=== PATIENT | female | born 1950 | race Two or more races ===

== ENCOUNTER 2017-10-11 09:16 | Emergency (ER) | payer SELFPAY ==
[~2017-10-11] VITALS: Ht 165.1 cm; Wt 108.9 kg
[2017-10-11] MEDS ORDERED: ONDANSETRON HCL 4 MG/2 ML VIAL IV ONE (10:45)
[2017-10-11] MEDS ORDERED: HYDROmorphone HCL 2 MG/ML VL IV ONE (10:45)
[2017-10-11 11:10] LABS: Basophils # (auto) 0 uL; Basophils % (auto) 0.3 % (0.0-2.0); Eosinophils # (auto) 0.3 uL; Eosinophils % (auto) 2.8 % (0.0-7.0); Hemoglobin 13.7 g/dL (12.2-16.2); Lymphocytes # (auto) 2.2 uL; Lymphocytes % (auto) 18.3 % (10.0-50.0); Mean Corpuscular Hemoglobin 30.3 pg (28.0-32.0); Mean Corpuscular Hgb Conc. 34.4 g/dL (32.0-36.0); Mean Corpuscular Volume 88.2 fL (80.0-100.0); Mean Platelet Volume 7.7 fL (6.9-10.8); Monocytes # (auto) 0.9 uL; Monocytes % (auto) 7.6 % (0.0-12.0); Neutrophils # (auto) 8.5 uL; Nucleated Red Blood Cells % 0.1 %; Platelet Count (auto) 288 10^3/uL (140-450); Red Cell Distribution Width 14.6 % (11.8-14.3)
[2017-10-11 11:13] LABS: BUN/Creatinine Ratio 22.7; Calcium 9.1 mg/dL (8.5-10.1); Potassium 4.1 mmol/L (3.5-5.1)
[2017-10-11 11:25] LABS: INR 0.88 (0.9-1.15); Partial Thromboplastin Time 27.3 sec (22.64-33.71); Prothrombin Time 9.6 sec (9.37-12.3)
[2017-10-11 12:27] VITALS: BP 145/84
== END 2017-10-11 12:26 | disposition home or self-care (01) ==
LOC: ER 09:16
DX: S42.201A Unspecified fracture of upper end of right humerus, initial encounter for closed fracture (principal); S20.211A Contusion of right front wall of thorax, initial encounter; I10 Essential (primary) hypertension; Z91.040 Latex allergy status; W01.0XXA Fall on same level from slipping, tripping and stumbling without subsequent striking against object, initial encounter; Y93.89 Activity, other specified; Y92.89 Other specified places as the place of occurrence of the external cause; Y99.8 Other external cause status
CPT/HCPCS: 29105; 36415; 71101; 73030; 80048; 85025; 85610; 85730; 96374; 96375; 99285; J1170; J2405

== ENCOUNTER 2018-03-19 15:17 | Emergency (ER) | payer MEDICAID ==
[~2018-03-19] VITALS: Ht 165.1 cm; Wt 117.9 kg
[2018-03-19 16:49] LABS: Basophils # (auto) 0.2 uL; Basophils % (auto) 1.5 % (0.0-2.0); Eosinophils # (auto) 0.4 uL; Eosinophils % (auto) 3.3 % (0.0-7.0); Hematocrit 41.4 % (36.0-46.0); Hemoglobin 13.6 g/dL (12.2-16.2); Lymphocytes # (auto) 2.4 uL; Lymphocytes % (auto) 19.4 % (10.0-50.0); Mean Corpuscular Hemoglobin 28.8 pg (28.0-32.0); Mean Corpuscular Hgb Conc. 32.8 g/dL (32.0-36.0); Mean Corpuscular Volume 87.8 fL (80.0-100.0); Monocytes # (auto) 1.1 uL; Monocytes % (auto) 9.3 % (0.0-12.0); Neutrophils # (auto) 8.1 uL; Neutrophils % (auto) 66.5 % (37.0-80.0); Nucleated Red Blood Cells % 0.1 %; Platelet Count (auto) 326 10^3/uL (140-450); Red Blood Cells 4.71 10^6/uL (4.0-5.20); Red Cell Distribution Width 13.9 % (11.8-14.3); White Blood Cell 12.2 10^3/uL (4.4-10.8)
[2018-03-19 17:07] LABS: Alanine Aminotransferase 28 U/L (13-56); Albumin 3.5 g/dL (3.4-5.0); Anion Gap 7 (5-15); Aspartate Aminotransferase 20 U/L (15-37); BUN/Creatinine Ratio 21.1; Blood Urea Nitrogen 16 mg/dL (7-18); Calcium 8.9 mg/dL (8.5-10.1); Carbon Dioxide 28 mmol/L (21-32); Chloride 106 mmol/L (98-107); GFR African American 98 mL/min; GFR Non-African American 81 mL/min; Glucose 86 mg/dL (74-106); Magnesium 2.3 mg/dL (1.6-2.6); Potassium 3.9 mmol/L (3.5-5.1); Sodium 141 mmol/L (136-145)
[2018-03-19 17:12] LABS: Alkaline Phosphatase 102 U/L (45-117); Bilirubin, Total 0.3 mg/dL (0.2-1.0); Total Protein 7.6 g/dL (6.4-8.2)
[2018-03-19 18:17] LABS: Urine Bacteria FEW /hpf (None Seen); Urine Blood TRACE /uL (Negative); Urine Specific Gravity 1.016 (1.001-1.035); Urine WBC <1 /hpf (0 - 5)
[2018-03-19 21:15] VITALS: BP 147/67
== END 2018-03-20 02:29 | disposition home or self-care (01) ==
LOC: ER 15:20
DX: S16.1XXA Strain of muscle, fascia and tendon at neck level, initial encounter (principal); J98.11 Atelectasis; E11.9 Type 2 diabetes mellitus without complications; E07.89 Other specified disorders of thyroid; Z90.710 Acquired absence of both cervix and uterus; Z90.89 Acquired absence of other organs; Z91.040 Latex allergy status
CPT/HCPCS: 36415; 71046; 72125; 80053; 81001; 83735; 84484; 85025; 93005

== ENCOUNTER 2019-09-10 20:29 | Emergency (ER) | payer MEDICAID ==
[~2019-09-10] VITALS: Ht 165.1 cm; Wt 122.5 kg
[2019-09-11] MEDS ORDERED: KETOROLAC TROMETH 60MG/2ML VIAL IM ONE (00:30)
[2019-09-11 00:55] VITALS: BP 135/41
== END 2019-09-11 01:23 | disposition home or self-care (01) ==
LOC: ER 20:29
DX: M85.30 Osteitis condensans, unspecified site (principal); M53.3 Sacrococcygeal disorders, not elsewhere classified; I10 Essential (primary) hypertension; Z90.710 Acquired absence of both cervix and uterus; Z86.39 Personal history of other endocrine, nutritional and metabolic disease; Z91.040 Latex allergy status
CPT/HCPCS: 72220; 81002; 96372; 99283; J1885

== ENCOUNTER → 2019-10-13 | Outpatient (CLI) | payer MEDICAID | END | disposition home or self-care (01) | LOC: Rad HDHVI 08:46 | PROVIDERS: ATTEND Internal Medicine | DX: R07.89 Other chest pain (principal); G47.33 Obstructive sleep apnea (adult) (pediatric); I11.9 Hypertensive heart disease without heart failure | CPT/HCPCS: 93306 ==

== ENCOUNTER 2023-04-09 10:27 | Inpatient (IN) | payer MEDICAID, OTHER ==
[~2023-04-09] VITALS: Ht 165.1 cm; Wt 130.0 kg
[~2023-04-09 10:27] MED LIST: ATOR40TA52 PO; LEVO137T3 PO; LORA-622 PO; LOSA-69 PO; METF-370 PO
[2023-04-09 10:50] LABS: Basophils # (auto) 0.1 10 ^3/uL (0-0.2); Basophils % (auto) 0.8 % (0.0-2.0); Eosinophils # (auto) 0.2 10 ^3/uL (0-0.8); Eosinophils % (auto) 1.9 % (0.0-7.0); Hematocrit 42.4 % (36.0-46.0); Hemoglobin 14.3 g/dL (12.2-16.2); Lymphocytes # (auto) 2.1 10 ^3/uL (0.4-5.4); Lymphocytes % (auto) 16.7 % (10.0-50.0); Mean Corpuscular Hemoglobin 29.4 pg (28.0-32.0); Mean Corpuscular Hgb Conc. 33.6 g/dL (32.0-36.0); Mean Corpuscular Volume 87.5 fL (80.0-100.0); Monocytes % (auto) 8.1 % (0.0-12.0); Neutrophils % (auto) 72.5 % (37.0-80.0); Nucleated Red Blood Cells % 0.2 %; Red Blood Cells 4.85 10^6/uL (4.0-5.20); Red Cell Distribution Width 14.5 % (11.8-14.3); White Blood Cell 12.5 10^3/uL (4.4-10.8)
[2023-04-09 11:18] LABS: Calcium 9.5 mg/dL (8.5-10.1); Potassium 4.1 mmol/L (3.5-5.1)
[2023-04-09 11:22] LABS: BUN/Creatinine Ratio 21.1 (10.0-20.0); Bilirubin, Total 0.5 mg/dL (0.2-1.0); Total Protein 7.2 g/dL (6.4-8.2)
[2023-04-09 11:27] LABS: INR 0.9 (0.9-1.15); Partial Thromboplastin Time 27.8 sec (24.6-33.4)
[2023-04-09] MEDS ORDERED: ONDANSETRON HCL 4 MG/2 ML VIAL IV PRN (18:15)
[2023-04-09] MEDS ORDERED: LOSARTAN POTASSIUM 50 MG TAB PO ONE (18:15)
[2023-04-09] MEDS ORDERED: MORPHINE SULFATE INJ 2 MG/ml SYRG IV PRN ×2 (18:15)
[2023-04-09] MEDS ORDERED: KETOROLAC TROMETH 30 MG/ML 1ML VIAL IV ONE (18:15)
[2023-04-09] MEDS ORDERED: DEXTROSE (50%) 50ML SYRG IV PRN (18:15)
[2023-04-09] MEDS ORDERED: PANTOPRAZOLE 40 MG/10 ML VIAL INJ IV ONE (18:15)
[2023-04-09] MEDS ORDERED: NITROGLYCERIN 0.4 MG SL TAB SL PRN (18:15)
[2023-04-09] MEDS ORDERED: LORazepam 0.5 MG TAB PO PRN (18:30)
[2023-04-09] MEDS: ATORVASTATIN 20 MG TAB PO SCH (23:43)
[2023-04-09 23:55] LABS: Urine Bacteria FEW /hpf (None Seen); Urine Blood 1+ /uL (Negative); Urine Hyaline Cast FEW /lpf (0 - 2); Urine Specific Gravity 1.016 (1.001-1.035); Urine WBC 38 /hpf (0 - 5)
[2023-04-10] MEDS: ACCU-CHEK COMFORT CURVE STRIP VI SCH ×5 (00:22→23:17)
[2023-04-10] MEDS ORDERED: QUEtiapine FUMARATE 25 MG TAB PO ONE (01:30)
[2023-04-10 04:48] LABS: Basophils # (auto) 0 10 ^3/uL (0-0.2); Basophils % (auto) 0.4 % (0.0-2.0); Eosinophils # (auto) 0.3 10 ^3/uL (0-0.8); Eosinophils % (auto) 2.6 % (0.0-7.0); Hematocrit 40.1 % (36.0-46.0); Hemoglobin 13.5 g/dL (12.2-16.2); Lymphocytes # (auto) 2.7 10 ^3/uL (0.4-5.4); Lymphocytes % (auto) 24.4 % (10.0-50.0); Mean Corpuscular Hgb Conc. 33.8 g/dL (32.0-36.0); Mean Corpuscular Volume 88.7 fL (80.0-100.0); Monocytes % (auto) 8.7 % (0.0-12.0); Neutrophils # (auto) 7.2 10 ^3/uL (1.6-8.6); Neutrophils % (auto) 63.9 % (37.0-80.0); Nucleated Red Blood Cells % 0.1 %; Red Blood Cells 4.51 10^6/uL (4.0-5.20); Red Cell Distribution Width 14.7 % (11.8-14.3); White Blood Cell 11.3 10^3/uL (4.4-10.8)
[2023-04-10 04:57] LABS: Potassium 3.8 mmol/L (3.5-5.1)
[2023-04-10 05:09] LABS: BUN/Creatinine Ratio 22.9 (10.0-20.0); Calcium 9.3 mg/dL (8.5-10.1)
[2023-04-10] MEDS: InsuLIN REG 1unit/0.01ml Soln (100units/ml) SC SCH ×5 (05:26→23:18)
[2023-04-10] MEDS: LEVOTHYROXINE SODIUM 100 MCG TAB PO SCH (06:37)
[2023-04-10] MEDS: PANTOPRAZOLE 40 MG/10 ML VIAL INJ IV SCH (10:28)
[2023-04-10] MEDS: LOSARTAN POTASSIUM 50 MG TAB PO SCH (10:28)
[2023-04-10] MEDS: HYDROcodone-ACET 5/325MG TAB PO PRN ×2 (13:09→20:00)
[2023-04-10 22:00] VITALS: BP 138/66
[2023-04-10] MEDS: QUEtiapine FUMARATE 25 MG TAB PO SCH (22:08)
[2023-04-10] MEDS: ATORVASTATIN 20 MG TAB PO SCH (22:08)
[2023-04-10 22:12] VITALS: BP 138/66
[2023-04-11] VITALS (7 sets, daily range): BP systolic 135–160; BP diastolic 44–79
[2023-04-11] MEDS: HYDROcodone-ACET 5/325MG TAB PO PRN ×2 (02:33→22:46)
[2023-04-11] MEDS: LEVOTHYROXINE SODIUM 100 MCG TAB PO SCH (05:53)
[2023-04-11] MEDS: ACCU-CHEK COMFORT CURVE STRIP VI SCH ×4 (05:54→23:10)
[2023-04-11] MEDS: InsuLIN REG 1unit/0.01ml Soln (100units/ml) SC SCH ×4 (05:54→23:10)
[2023-04-11] MEDS: ACETAMINOPHEN 500 MG TAB PO PRN ×2 (06:33→16:14)
[2023-04-11] MEDS: PANTOPRAZOLE 40 MG/10 ML VIAL INJ IV SCH (09:35)
[2023-04-11] MEDS: LOSARTAN POTASSIUM 50 MG TAB PO SCH (09:36)
[2023-04-11] MEDS ORDERED: ASPirin 81 mg TAB PO ONE ×2 (12:45→14:15)
[2023-04-11] MEDS ORDERED: diphenhdrAMINE HCL 50 MG/1 ML VL IV ONE (12:45)
[2023-04-11] MEDS: ATORVASTATIN 20 MG TAB PO SCH (21:38)
[2023-04-11] MEDS: QUEtiapine FUMARATE 25 MG TAB PO SCH (21:39)
[2023-04-12] VITALS (10 sets, daily range): BP systolic 135–167; BP diastolic 62–85
[2023-04-12] MEDS: ACCU-CHEK COMFORT CURVE STRIP VI SCH ×3 (05:45→17:46)
[2023-04-12] MEDS: InsuLIN REG 1unit/0.01ml Soln (100units/ml) SC SCH ×3 (05:45→17:45)
[2023-04-12] MEDS: LEVOTHYROXINE SODIUM 100 MCG TAB PO SCH (05:51)
[2023-04-12] MEDS ORDERED: ASPirin 81 mg TAB PO SCH (10:00)
[2023-04-12] MEDS: PANTOPRAZOLE 40 MG/10 ML VIAL INJ IV SCH (10:35)
[2023-04-12] MEDS: LOSARTAN POTASSIUM 50 MG TAB PO SCH (10:36)
[2023-04-12] MEDS ORDERED: HEPARIN SODIUM (PORCINE) 5000 UNITS/ML 1ML VIAL ONE (12:13)
[2023-04-12] MEDS ORDERED: ANGIOMAX 250 MG VIAL IV ONE (12:13)
[2023-04-12] MEDS ORDERED: VERAPAMIL 2.5MG/ML INJ 2ML VIAL IV ONE (12:13)
[2023-04-12] MEDS ORDERED: fentaNYL CITRATE 100 MCG/2 ML VL ONE (12:14)
[2023-04-12] MEDS ORDERED: MIDAZOLAM HCL 2MG/2ML 2ml VIAL (1mg/ml) ONE (12:14)
[2023-04-12] MEDS ORDERED: SODIUM CHL 0.9% 0 ML ONE (12:14)
[2023-04-12] MEDS ORDERED: LIDOCAINE 2%HCL (LOCAL ANESTH.) INJ 20ML MDV ONE (12:15)
[2023-04-12] MEDS ORDERED: FUROSEMIDE 100 MG/10ML VIAL IV ONE (13:00)
[2023-04-12] MEDS: HYDROcodone-ACET 5/325MG TAB PO PRN (13:44)
[2023-04-12] MEDS ORDERED: cefTRIAXone 1GM/50ML D5W 50 ML IV ONE (14:15)
[2023-04-12] MEDS ORDERED: FURO1TAB31 PO (14:31)
[2023-04-12] MEDS ORDERED: CEFD300C2 PO (14:31)
[2023-04-12] MEDS ORDERED: POTA-180 PO (14:31)
== END 2023-04-12 18:19 | disposition home or self-care (01) | DRG 286 ==
LOC: ER 10:27 → TELE 18:21 → TELE-WESTW 04-10 21:47
PROVIDERS: ADMIT Internal Medicine; ATTEND Internal Medicine
PROC: 4A023N7 Measurement of Cardiac Sampling and Pressure, Left Heart, Percutaneous Approach (ICD-10-PCS; principal; 2023-04-12)
PROC: B2111ZZ Fluoroscopy of Multiple Coronary Arteries using Low Osmolar Contrast (ICD-10-PCS; 2023-04-12)
DX: I25.110 Atherosclerotic heart disease of native coronary artery with unstable angina pectoris (principal); I50.33 Acute on chronic diastolic (congestive) heart failure; N39.0 Urinary tract infection, site not specified; Z68.42 Body mass index [BMI] 45.0-49.9, adult; E11.9 Type 2 diabetes mellitus without complications; E89.0 Postprocedural hypothyroidism; E66.01 Morbid (severe) obesity due to excess calories; E78.5 Hyperlipidemia, unspecified; I10 Essential (primary) hypertension; Z79.899 Other long term (current) drug therapy; Z82.49 Family history of ischemic heart disease and other diseases of the circulatory system; Z91.040 Latex allergy status; Z83.3 Family history of diabetes mellitus; Z88.6 Allergy status to analgesic agent; Z90.710 Acquired absence of both cervix and uterus
CPT/HCPCS: 36415; 71045; 73562; 80048; 80053; 81001; 82962; 84443; 84484; 85025; 85610; 85730; 93005; 93306; 93458; 96374; 96375; 99152; C9113; G0378; J0696; J1885; J2250

== ENCOUNTER 2023-09-01 10:42 | Emergency (ER) | payer OTHER ==
[~2023-09-01] VITALS: Ht 165.1 cm; Wt 118.7 kg
[~2023-09-01 10:42] MED LIST changes: +CEFD300C2 PO; +FURO1TAB31 PO; -LOSA-69 PO; +LOSA50TA46 PO; +POTA-180 PO
[2023-09-01 11:40] LABS: Urine Bacteria NONE SEEN /hpf (None Seen); Urine Blood 1+ /uL (Negative); Urine Clarity Clear (Clear); Urine Color Colorless (Yellow); Urine Protein, UAD Negative (Negative); Urine Specific Gravity 1.017 (1.001-1.035); Urine Urobilinogen Normal (Negative); Urine WBC 2 /hpf (0 - 5)
[2023-09-01 11:59] LABS: Basophils # (auto) 0 10 ^3/uL (0-0.2); Basophils % (auto) 0.3 % (0.0-2.0); Eosinophils # (auto) 0.2 10 ^3/uL (0-0.8); Eosinophils % (auto) 1.3 % (0.0-7.0); Hematocrit 45.6 % (36.0-46.0); Hemoglobin 15.5 g/dL (12.2-16.2); Lymphocytes # (auto) 1.5 10 ^3/uL (0.4-5.4); Lymphocytes % (auto) 12.4 % (10.0-50.0); Mean Corpuscular Hemoglobin 29.6 pg (28.0-32.0); Monocytes % (auto) 8.1 % (0.0-12.0); Neutrophils # (auto) 9.5 10 ^3/uL (1.6-8.6); Neutrophils % (auto) 77.9 % (37.0-80.0); Red Blood Cells 5.24 10^6/uL (4.0-5.20); Red Cell Distribution Width 14.6 % (11.8-14.3); White Blood Cell 12.2 10^3/uL (4.4-10.8)
[2023-09-01 12:21] LABS: Alanine Aminotransferase 17 U/L (7-40); Albumin 4.5 g/dL (3.2-4.8); Alkaline Phosphatase 80 U/L (46-116); Anion Gap 6 (5-15); Aspartate Aminotransferase 12 U/L (13-40); BUN/Creatinine Ratio 11.1 (10.0-20.0); Bilirubin, Total 0.7 mg/dL (0.2-1.0); Blood Urea Nitrogen 9 mg/dL (9-23); Calcium 9.4 mg/dL (8.5-10.1); Carbon Dioxide 30 mmol/L (20-30); Chloride 104 mmol/L (98-107); Glucose 164 mg/dL (74-106); Potassium 3.3 mmol/L (3.5-5.1); Sodium 140 mmol/L (136-145); Total Protein 7.7 g/dL (5.7-8.2)
[2023-09-01 12:34] LABS: Platelet Estimate Adequate
[2023-09-01] MEDS ORDERED: NITR-87 PO (14:08)
[2023-09-01] MEDS ORDERED: HYDROcodone-ACET 10/325MG TAB PO ONE (14:15)
[2023-09-01] MEDS ORDERED: cefTRIAXone SOD 1,000 MG VL IM ONE (14:15)
[2023-09-01 14:25] VITALS: BP 122/66; PULSE 82; RESP 16; TEMP 98; O2SAT 95
== END 2023-09-01 14:36 | disposition home or self-care (01) ==
LOC: ER 10:42
DX: N39.0 Urinary tract infection, site not specified (principal); K43.9 Ventral hernia without obstruction or gangrene; E11.9 Type 2 diabetes mellitus without complications; E78.5 Hyperlipidemia, unspecified; I10 Essential (primary) hypertension; Z90.710 Acquired absence of both cervix and uterus; Z90.89 Acquired absence of other organs; Z98.890 Other specified postprocedural states; Z91.040 Latex allergy status; Z79.899 Other long term (current) drug therapy
CPT/HCPCS: 36415; 71045; 74176; 80053; 81001; 84484; 85025; 93005; 96372; 99285; J0696